=== PATIENT | male | born 1960 | race Caucasian/White ===

== ENCOUNTER 2019-10-30 06:00 | Outpatient (RCR) | payer OTHER, SELFPAY | END 2019-11-29 00:01 | LOC: MPT 06:00 | PROVIDERS: Family Provider Physical Therapist; Visit Provider Family Medicine | DX: G89.29 Other chronic pain (principal); M54.9 Dorsalgia, unspecified | CPT/HCPCS: 97110; 97112 ×2; 97140 ×3; 97530 ==

== ENCOUNTER 2019-11-30 06:00 | Outpatient (RCR) | payer OTHER, SELFPAY | END 2019-12-30 23:59 | disposition home or self-care (01) | LOC: MPT 06:00 | PROVIDERS: Family Provider Physical Therapist; PCP Nurse Practitioner; Visit Provider Family Medicine | DX: M54.9 Dorsalgia, unspecified (principal) | CPT/HCPCS: 97110; 97140; 97164 ==